=== PATIENT | male | born 1955 | race Caucasian/White ===

== ENCOUNTER 2018-08-30 10:46 | Emergency (ER) | payer OTHER ==
--- NOTE | 2018-08-30 11:11 | C.PDOC ---
History Of Present Illness Patient BIBA for evaluation of "unresponsiveness" at his job. Patient is not speaking currently on ED. EMS states he was found on the floor inside his office at the [facility]. History is limited due to clinical conditio n. PMHx: HTN, hyperlipidemia, anxiety/depression Time Seen by Provider: 08/30/18 10:52 Chief Complaint (Nursing): Altered Mental Status History Per: EMS History/Exam Limitations: Clinical Condition Onset/Duration Of Symptoms: Other ([place]) Current Symptoms Are (Timing): Still Present Past Medical History Reviewed: Historical Data, Nursing Documentation, Vital Signs Vital Signs: Last Vital Signs Temp 99.3 F 08/30/18 10:50 Pulse 73 08/30/18 10:50 Resp 14 08/30/18 10:50 BP 210/99 H 08/30/18 10:50 Pulse Ox 97 08/30/18 10:50 - Medical History PMH: Anxiety, Depression, HTN, Hypercholesterolemia Family History: States: No Known Family Hx - Social History Hx Alcohol Use: Yes Hx Substance Use: No - Immunization History Hx Tetanus Toxoid Vaccination: No Hx Influenza Vaccination: No Hx Pneumococcal Vaccination: No Review Of Systems Review Of Systems: ROS cannot be obtained secondary to pt's inabilty to answer questions. Physical Exam - Physical Exam Appears: Well, Non-toxic, No Acute Distress, Other (bizarre affect) Skin: Normal Color, Warm, Dry Head: Atraumatic, Normacephalic Eye(s): bilateral: Normal Inspection (no mydriasis or miosis), PERRL, EOMI Oral Mucosa: Moist Neck: Normal ROM, No Midline Cervical Tenderness, Paracervical Tenderness (diffuse, B/L ), No Step Off Deformity, Supple Cardiovascular: Rhythm Regular Respiratory: Normal Breath Sounds, No Rales, No Rhonchi, No Wheezing Gastrointestinal/Abdominal: Normal Exam, Bowel Sounds, Soft, No Tenderness Neurological/Psych: Normal Cranial Nerves, No Cerebellar Signs, Normal Motor, Normal Sensation, Other (awake and alert, nonverbal ) ED Course And Treatment - Laboratory Results Result Diagrams: 08/30/18 11:13 08/30/18 11:58 ECG: Interpreted By Me, Viewed By Me (NSR 68 bpm, normal axis, no acute ST/T wave changes) ECG Interpretation: Normal O2 Sat by Pulse Oximetry: 97 (RA) Pulse Ox Interpretation: Normal - CT Scan/US ct head Other Rad Studies (CT/US): Read By Radiologist, Radiology Report Reviewed CT/US Interpretation: Accession No. : [id number]. Patient Name / ID : PEDRO PABLO HYDE / [id number]. Exam Date : 08/30/2018 11:26:00 ( Approved ). Study Comment : Sex / Age : M / 63Y. Creator : Lina Albarran. Dictator : Ginny Blake MD. Ops Manager : [employer] Hand : Ginny Blake MD. Approver2 : Report Date : 08/30/2018 11:40:20. My Comment : . Date of service: 08/30/2018. PROCEDURE: CT HEAD WITHOUT CONTRAST. HISTORY: HEAD INJURY, (+) LOC. COMPARISON: None available. TECHNIQUE: Axial computed tomography images were obtained through the head/brain without intravenous contrast. Radiation dose: Total exam DLP = 1035.32 mGy-cm. This C T exam was performed using one or more of the following dose reduction techniques: Automated exposure control, adjustment of the mA and/or kV according to patient size, and/or use of iterative reconstruction technique. FINDINGS: HEMORRHAGE: No intracranial hemorrhage. BRAIN: No mass effect or edema. The wynn-white matter differentiation appears intact. Please note that MRI with diffusion imaging is more sensitive in the detection of acute ischemic event. VENTRICLES: No hydrocephalus. CALVARIUM: Unremarkable. PARANASAL SINUSES: Mild mucosal thickening of the ethmoid air cells and right maxillary sinus. The remainder of the visualized paranasal sinuses appear clear. MASTOID AIR CELLS: Unremarkable as visualized. No inflammatory changes. OTHER FINDINGS: None. IMPRESSION: No acute intracranial pathology identified. ct Cspine Other Rad Studies (CT/US): Read By Radiologist, Radiology Report Reviewed CT/US Interpretation: Accession No. : [id number]. Patient Name / ID : PEDRO PABLO HYDE / [id number]. Exam Date : 08/30/2018 11:28:27 ( Approved ). Study Comment : Sex / Age : M / 63Y. Creator : Ginny Blake MD. Dictator : Ginny Blake MD. Ops Manager : [employer] : Ginny Blake MD. Approver2 : Report Date : 08/30/2018 12:27:24. My Comment : . Date of service:08/30/2018. CT cervical spine without IV contrast. Indication: neck pain AFTER FALL. Comparison: None available. Technique: Axial computed tomography images were obtained of the cervical spine without the use of intravenous contrast. Coronal and sagittal reformatted images were created and reviewed. This CT exam was performed using 1 or more of the following dose reduction techniques: Automated exposure control, adjustment of the MAA and/or kV according to patient size, and/or use of iterative reconstruction technique. Radiation dose: Total exam DLP = 554.04 mGy-cm. Findings: Scoliosis with mild curvature of the cervical spine convex the left. Straightening of the normal cervical lordosis may be related to muscle spasm or positioning. Multilevel degenerative changes including intervertebral disc space narrowing and anterior osteophyte formation. No acute displaced fracture or subluxation evident. The prevertebral soft tissues and spinolaminar lines appear intact. The lateral masses are preserved. The dens tip is intact. There is proper alignment of the lateral masses of C1 with the C2 vertebral body. Included portions of the thyroid gland appear unremarkable. Included portions of lung apices appear clear. Impression: Straightening of the normal cervical lordosis may be related to muscle spasm or positioning. No evidence of acute fracture or subluxation. Multilevel degenerative changes. Progress Note: After several minutes, patient began to speak. He states he was walking at work, tripped and feel forward, hit face/head on the floor and had (+) LOC. Currently c/o headache and neck pain. He denies chest pain, SOB, palpitations, visual changes, facial droop, slurred speech, extremity weakness, sensory changes. Reevaluation Time: 13:30 Reassessment Condition: Improved (Patient reassessed, is currently AAOx3, states he is feeling better. Patient is able to ambulate normally in the ED. He and daughter are comfortable being discharged home. Suspect possible underlying psychiatric disease in this patient - he is seeing a psychologist according to him. CT scans neg for acute injuries. Patient instructed to follow up with PMD in 1-2 days, and understands he should return to ED if he had any concerning sym ptoms.) Disposition Counseled Patient/Family Regarding: Studies Performed, Diagnosis, Need For Followup, Rx Given - Disposition Referrals: [facility] [Outside] Disposition: HOME/ ROUTINE Disposition Time: 13:30 Condition: STABLE Additional Instructions: FOLLOW UP WITH YOUR DOCTOR IN 1-2 DAYS USE MEDICATIONS NEEDED RETURN TO ER IF SYMPTOMS WORSEN Prescriptions: Cyclobenzaprine [Flexeril] 10 mg PO BID PRN #15 tab PRN Reason: Muscle Spasm Naproxen 375 mg PO BID PRN #20 tablet PRN Reason: pain Instructions: Closed Head Injury (DC), Neck Sprain (DC) Forms: [facility] (Tristanian) Print Language: NAMIBIAN - Clinical Impression Clinical Impression: Closed head injury, Acute cervical sprain
[2018-08-30 11:19] LABS: BASO % 0.5 % (0.0-2.0); EOS % 0.5 % (0.0-4.0); HEMOGLOBIN 17.7 g/dL (12.0-18.0); LYMPH # 1.8 K/uL (1.0-4.3); MEAN CELL VOLUME 94.4 fL (80.0-94.0); MEAN CORPUSCULAR HEMOGLOBIN 31.1 pg (27.0-31.0); MEAN PLATELET VOLUME 9.1 fL (7.2-11.7); MONO # 0.5 K/uL (0.0-0.8); NRBC % 0.1 % (0.0-2.0); RBC 5.68 Mil/uL (4.40-5.90); RED CELL DISTRIBUTION WIDTH 14.1 % (11.5-14.5); WHITE BLOOD COUNT 9.4 K/uL (4.8-10.8)
[2018-08-30 11:31] VITALS: TEMP 99.3; BMI 30.1
--- NOTE | 2018-08-30 12:26 | CT ---
Date of service: 08/30/2018 PROCEDURE: CT HEAD WITHOUT CONTRAST. HISTORY: HEAD INJURY, (+) LOC COMPARISON: None available. TECHNIQUE: Axial computed tomography images were obtained through the head/brain without intravenous contrast. Radiation dose: Total exam DLP = 1035.32 mGy-cm. This CT exam was performed using one or more of the following dose reduction techniques: Automated exposure control, adjustment of the mA and/or kV according to patient size, and/or use of iterative reconstruction technique. FINDINGS: HEMORRHAGE: No intracranial hemorrhage. BRAIN: No mass effect or edema. The wynn-white matter differentiation appears intact. Please note that MRI with diffusion imaging is more sensitive in the detection of acute ischemic event. VENTRICLES: No hydrocephalus. CALVARIUM: Unremarkable. PARANASAL SINUSES: Mild mucosal thickening of the ethmoid air cells and right maxillary sinus. The remainder of the visualized paranasal sinuses appear clear. MASTOID AIR CELLS: Unremarkable as visualized. No inflammatory changes. OTHER FINDINGS: None. IMPRESSION: No acute intracranial pathology identified.
[2018-08-30 12:30] LABS: ALB/GLOB RATIO 1.7 (1.0-2.1); ALBUMIN 4.4 g/dL (3.5-5.0); ALT/SGPT 27 U/L (21-72); AST/SGOT 33 U/L (17-59); BLOOD UREA NITROGEN 17 mg/dL (9-20); CALCIUM 9.5 mg/dl (8.6-10.4); GFR NON-AFRICAN AMERICAN > 60
--- NOTE | 2018-08-30 12:30 | CT ---
Date of service:08/30/2018 CT cervical spine without IV contrast Indication: neck pain AFTER FALL Comparison: None available Technique: Axial computed tomography images were obtained of the cervical spine without the use of intravenous contrast. Coronal and sagittal reformatted images were created and reviewed. This CT exam was performed using 1 or more of the following dose reduction techniques: Automated exposure control, adjustment of the MAA and/or kV according to patient size, and/or use of iterative reconstruction technique. Radiation dose: Total exam DLP = 554.04 mGy-cm. Findings: Scoliosis with mild curvature of the cervical spine convex the left. Straightening of the normal cervical lordosis may be related to muscle spasm or positioning. Multilevel degenerative changes including intervertebral disc space narrowing and anterior osteophyte formation. No acute displaced fracture or subluxation evident. The prevertebral soft tissues and spinolaminar lines appear intact. The lateral masses are preserved. The dens tip is intact. There is proper alignment of the lateral masses of C1 with the C2 vertebral body. Included portions of the thyroid gland appear unremarkable. Included portions of lung apices appear clear. Impression: Straightening of the normal cervical lordosis may be related to muscle spasm or positioning. No evidence of acute fracture or subluxation. Multilevel degenerative changes.
[2018-08-30 12:41] LABS: CK-MB 0.81 ng/mL (0.0-3.38)
[2018-08-30 12:42] LABS: URINE BILIRUBIN NEGATIVE (NEGATIVE); URINE BLOOD NEGATIVE (NEGATIVE); URINE CLARITY Clear (Clear); URINE COLOR Yellow (YELLOW); URINE GLUCOSE (UA) NORMAL (Normal); URINE LEUKOCYTE ESTERASE NEG Leu/uL (Negative); URINE PROTEIN NEGATIVE (NEGATIVE); URINE UROBILINOGEN NORMAL mg/dL (0.2-1.0)
[2018-08-30 13:07] LABS: BARBITURATES, UR NEGATIVE (NEGATIVE); BENZODIAZEPINES, UR NEGATIVE (NEGATIVE); OPIATES, UR NEGATIVE (NEGATIVE); PHENCYCLIDINE, UR NEGATIVE (NEGATIVE)
[2018-08-30 13:37] VITALS: BP 154/90; PULSE 70; RESP 14
[2018-09-03 18:37] VITALS: O2SAT 97
--- NOTE | 2018-09-03 22:37 | CARD ---
APPROVED REPORT Date of service: 08/30/2018 EKG Measurement Heart [id number] OR 130P36 [id number] <Conclusion> Normal sinus rhythm with sinus arrhythmia Moderate voltage criteria for LVH, may be normal variant Borderline ECG
== END 2018-08-30 13:47 | disposition home or self-care (01) ==
LOC: C.ER 10:46
DX: S09.90XA Unspecified injury of head, initial encounter (principal); S13.4XXA Sprain of ligaments of cervical spine, initial encounter; W01.0XXA Fall on same level from slipping, tripping and stumbling without subsequent striking against object, initial encounter
CPT/HCPCS: 70450; 72125; 80053; 80324; 80345; 80346; 80349; 80353; 80358; 80361; 81001; 82550; 82553; 82948; 83992; 84484; 85025; 93005; 96374; 99285; J1885